=== PATIENT | female | born 1985 | race American Indian/Alaskan Native ===

== ENCOUNTER 2017-09-18 06:18 | Day surgery (SDC) | payer MEDICAID, OTHER ==
[2017-09-18] MEDS ORDERED: WATER FOR IRRIG STERILE IR ONE (07:27)
--- NOTE | 2017-09-18 07:35 | Discharge Summary ---
Providers - Providers Date of discharge: 09/18/17 Attending physician: BRAYAN OLEARY Primary care physician: FELIPA RUIZ Hospitalization Condition: Good Procedures: egd Disposition: - TO HOME OR SELFCARE Core Measure Documentation - Palliative Care Palliative Care/ Comfort Measures: Not Applicable - Core Measures Any of the following diagnoses?: none Exam - Physical Exam Narrative exam: unchanged from pre-op Plan Activity: no restrictions Weight Bearing Status: Full Weight Bearing Diet: regular Follow up with: FELIPA RUIZ MD [Primary Care Provider] - 7 Days
--- NOTE | 2017-09-18 07:45 | Operative Report ---
Operative Report Operative Report: OPERATIVE REPORT - EGD DATE 09/18/17 SURGERY: Upper endoscopy. SURGEON: Yong Hoang M.D. CLEAN ROOM OPERATOR: Genet Núñez MD PRE OP DX: dyspepsia POST OP DX: hiatal hernia TYPE OF ANESTHESIA: MAC. ESTIMATED BLOOD LOSS: None. COMPLICATIONS: None. SPECIMENS REMOVED: None. FINDINGS: 1. Small hiatal hernia. 2. Otherwise, normal esophagus, stomach and first portion of duodenum. INDICATIONS:INDICATION FOR PROCEDURE: Patient is a 32-year-old female with a long history of morbid obesity. She is planned to have a weight loss procedure and is here for preoperative planning EGD. PROCEDURE DETAILS: After consent was reviewed, patient was taken back to the operating room where patient was placed in the left lateral decubitus position and a bite block was placed in the mouth. After a time-out was called, MAC anesthesia was initiated. I then passed the endoscope into her oropharynx, into her esophagus, visualized the entire esophagus, which was all within normal limits. I then visualized the stomach and the first portion of the duodenum and there were no abnormalities I could clearly visualize. I then retroflexed the scope in the stomach and visualized the hiatus and I could see a small hiatal hernia. I then desufflated the stomach and removed the endoscope. Patient tolerated procedure well and was transferred to recovery room in good and stable condition.
[2017-09-18] MEDS ORDERED: NACL 0.9% 1000 ML 1,000 ML IV SCH (08:00)
[2017-09-18] MEDS ORDERED: DIPRIVAN 10 MG/ML IV ONE (08:28)
--- NOTE | 2017-09-18 08:33 | Anesthesia Day of Surgery ---
Anesthesia Day of Surgery - Day of Surgery Patient Examined: Yes Patient H&P Reviewed: Yes Patient is NPO: Yes
--- NOTE | 2017-09-18 08:33 | Anesthesia Consultation ---
Anesthesia Consult and Med Hx Date of service: 09/18/17 - Airway Anesthetic Teeth Evaluation: Poor ROM Head & Neck: Adequate Mental/Hyoid Distance: Adequate Mallampati Class: Class II Intubation Access Assessment: Probably Good - Pulmonary Exam CTA: Yes - Cardiac Exam Cardiac Exam: RRR - Pre-Operative Health Status ASA Pre-Surgery Classification: ASA3 Proposed Anesthetic Plan: General - Hematic Hx Anemia: Yes - Additional Comments Anesthesia Medical History Comments: NAC previously.
[2017-09-18 10:18] VITALS: BP 132/79
== END 2017-09-18 06:19 | disposition home or self-care (01) ==
LOC: GIO 06:18
PROVIDERS: ATTEND Surgery
DX: K30 Functional dyspepsia (principal); K44.9 Diaphragmatic hernia without obstruction or gangrene; F41.9 Anxiety disorder, unspecified; F32.9 Major depressive disorder, single episode, unspecified; D50.9 Iron deficiency anemia, unspecified; E61.8 Deficiency of other specified nutrient elements; E66.01 Morbid (severe) obesity due to excess calories; Z68.43 Body mass index [BMI] 50.0-59.9, adult; Z98.890 Other specified postprocedural states; Z80.0 Family history of malignant neoplasm of digestive organs; Z83.3 Family history of diabetes mellitus; Z80.3 Family history of malignant neoplasm of breast; Z82.49 Family history of ischemic heart disease and other diseases of the circulatory system; Z88.0 Allergy status to penicillin; Z91.048 Other nonmedicinal substance allergy status
CPT/HCPCS: 43235; 81025 ×2; J2704; J7030

== ENCOUNTER 2017-10-09 09:00 | Inpatient (IN) | payer MEDICAID, OTHER ==
--- NOTE | 2017-10-06 10:56 | Anesthesia Consultation ---
Anesthesia Consult and Med Hx Date of service: 10/06/17 - Airway Anesthetic Teeth Evaluation: Good, Chipped (top front) ROM Head & Neck: Adequate Mental/Hyoid Distance: Adequate Mallampati Class: Class II Intubation Access Assessment: Probably Good - Pulmonary Exam CTA: Yes - Cardiac Exam Cardiac Exam: RRR - Pre-Operative Health Status ASA Pre-Surgery Classification: ASA3 Proposed Anesthetic Plan: General - Pulmonary Hx Smoking: No Hx Sleep Apnea: Yes (mild, no CPAP) - Central Nervous System Hx Back Pain: Yes (s/p back surgery) Hx Psychiatric Problems: No - Gastrointestinal Hx Gastroesophageal Reflux Disease: Yes - Endocrine Hx Non-Insulin Dependent Diabetes: Yes (not on meds) - Hematic Hx Anemia: Yes - Other Systems Hx Alcohol Use: No Hx Substance Use: No Hx Cancer: No Hx Obesity: Yes
[2017-10-06 11:30] LABS: Bacteria,Urine 1+ /HPF (Negative); Bilirubin,Urine NEG (Negative); Blood,Urine NEG (Negative); Ketones,Urine NEG (Negative); Leukocyte Esterase,Urine TR (Negative); Nitrite,Urine NEG (Negative); Protein,Urine <15 mg/dL mg/dL (Negative); Urobilinogen,Urine < 2.0 mg/dL (<2.0)
[~2017-10-09 09:00] MED LIST: NACL 0.9% 1000 ML 1,000 ML IV SCH; PEPCID IV NR; TRANSDERM-SCOP TD NR; ZOFRAN IV NR
[2017-10-09] MEDS ORDERED: REGLAN IV PRN (10:14)
[2017-10-09] MEDS ORDERED: ZOFRAN IV PRN (10:14)
[2017-10-09] MEDS ORDERED: DILAUDID IV PRN (10:14)
[2017-10-09] MEDS ORDERED: MORPHINE IV PRN (10:14)
[2017-10-09] MEDS ORDERED: APRESOLINE IV PRN (10:14)
[2017-10-09] MEDS ORDERED: NORCO PO PRN (10:14)
[2017-10-09] MEDS ORDERED: LACTATED RINGERS 1,000 ML IV SCH (11:00)
[2017-10-09] MEDS ORDERED: LEVAQUIN 500MG/100ML 500 MG/100 ML BAG IV NR (11:00)
[2017-10-09] MEDS ORDERED: LEVAQUIN 500MG/100ML 500 MG/100 ML BAG IV ONE (11:00)
[2017-10-09] MEDS ORDERED: FLAGYL 500 MG/100 ML 500 MG/100 ML BAG IV NR ×2 (11:00)
[2017-10-09] MEDS ORDERED: TORADOL IV SCH (11:00)
[2017-10-09] MEDS ORDERED: LOVENOX SUB-Q NR (11:00)
[2017-10-09] MEDS ORDERED: SUBLIMAZE ONE (11:30)
[2017-10-09] MEDS ORDERED: DIPRIVAN 10 MG/ML IV ONE (11:30)
[2017-10-09] MEDS ORDERED: XYLOCAINE 1% 20 mL INFILTRATI ONE (12:03)
[2017-10-09] MEDS ORDERED: ADRENALIN IV ONE (12:03)
[2017-10-09] MEDS ORDERED: NACL 0.9% IR ONE (12:03)
[2017-10-09] MEDS ORDERED: MARCAINE 0.5% INFILTRATI ONE (12:03)
[2017-10-09] MEDS ORDERED: XYLOCAINE 1% 20 mL ONE (12:18)
[2017-10-09] MEDS ORDERED: MARCAINE 0.5% 30 ML INFILTRATI ONE (12:18)
[2017-10-09] MEDS ORDERED: ADRENALIN ONE (12:19)
[2017-10-09] MEDS ORDERED: NACL 0.9% 250ML 250 ML ONE (12:43)
[2017-10-09] MEDS ORDERED: XYLOCAINE MPF 2% ONE (12:58)
[2017-10-09] MEDS ORDERED: ZOFRAN ONE (12:58)
[2017-10-09] MEDS ORDERED: QUELICIN ONE (12:58)
[2017-10-09] MEDS ORDERED: ZEMURON IV ONE (12:58)
[2017-10-09] MEDS ORDERED: DECADRON ONE ×2 (12:59)
[2017-10-09] MEDS ORDERED: NEOSTIGMINE ONE (12:59)
[2017-10-09] MEDS ORDERED: ROBINUL ONE ×2 (12:59)
[2017-10-09] MEDS ORDERED: DILAUDID ONE (13:05)
[2017-10-09] MEDS ORDERED: BREVIBLOC IV ONE (13:41)
--- NOTE | 2017-10-09 14:23 | Operative Report ---
Operative Report Operative Report: Operative Report/ DATE OF PROCEDURE: 10/09/17 PREOPERATIVE DIAGNOSES: Morbid obesity, hiatal hernia POSTOPERATIVE DIAGNOSES: 1.same as pre-op SURGEON: Yong Hoang M.D. DIRECTOR ACCOUNT MANAGEMENT: Genet Núñez MD PROCEDURE: 1. laparoscopic sleeve gastrectomy ANESTHESIA: General. ESTIMATED BLOOD LOSS: <5 mL. COMPLICATIONS: None. SPECIMEN: Partial gastrectomy. FINDINGS: adhesions from previous open cholecystectomy INDICATION FOR PROCEDURE: Patient is a 32-year-old female with a long history of morbid obesity. She has tried multiple efforts at weight loss without residential success. She is here today for sleeve gastrectomy. PROCEDURE IN DETAIL: After consent was reviewed, patient was taken back to the operating room, where patient was placed supine on the bed with both arms out. The patient's legs were doubly strapped to the bed. Patient had a foot board in place. Patient had a body warmer placed by anesthesia. Patient was then prepped and draped in normal sterile surgical fashion. After a time-out was called, I made a stab incision in the left subcostal area and placed a Veress needle through this incision and insufflated the abdomen to 18 mmHg pressure. I then counted down a handsbreadth below the xiphoid process in the midline and slightly left lateral injected local anesthetic and made about 0.5 cm transverse incision. I then used a 5-mm Optiview trocar to enter into the abdomen. I then placed a 45-degree scope through this port and inspected the abdomen. There was no injury on entry of the abdomen. I then placed two 5-mm ports in the right upper quadrant, left upper quadrant and 1 subxiphoid below the costovertebral angle. I then placed a 15-mm port about a handsbreadth rleft lateral and inferior to my anterior RUQ port. I then placed left upper quadrant port along the anterior axillary line in a similar fashion. I then placed the liver retractor through the subxiphoid port and placed the patient in full reverse Trendelenburg. There was no significant hiatal hernia requiring repair at this time. I then identified the pylorus and then counted off 6cm from the pylorus. I then used a LigaSure cutting device to enter into the lesser sac. At that point and then I took down the short gastrics all the way up to the left kianna. Then I had anesthesia pass down a 36-[place] bougie along the lesser curvature of the stomach. I made sure everything else was out of the abdomen except the bougie. I then created my gastric sleeve using a 60-mm laparoscopic stapler. Using green, gold, followed by blue loads . The sleeve looked good without any twisting or torsion. I then had anesthesia to remove the bougie. Hemostasis was obtained along the staple line. I then used Tiseel along the entirety of the staple line and some on the liver. I then removed liver grasper and took it off the field. I then removed the stomach through the 15-mm port. I then closed that fascia with a #1 PDS in a [id number] fashion using a Murali-Solis. I then desufflated the abdomen and then removed all port sites. I then closed the incisions with 4-0 Monocryl in subcuticular fashion. I then dressed the wounds with Dermabond. Patient tolerated the procedure well and was transferred to recovery room in good and stable condition.
[2017-10-09] MEDS: MYLICON PO PRN ×2 (15:25→20:37)
[2017-10-09] MEDS: TORADOL IV SCH ×2 (15:28→20:26)
[2017-10-09] MEDS: FLAGYL 500 MG/100 ML 500 MG/100 ML BAG IV SCH (20:28)
[2017-10-10] MEDS: TORADOL IV SCH ×2 (02:41→09:47)
[2017-10-10 02:44] LABS: Alanine Aminotransferase 16 units/L (7-56); Albumin 3.4 g/dL (3.9-5); Alkaline Phosphatase 67 units/L (35-129); BUN/Creatinine Ratio 10; Blood Urea Nitrogen 6 mg/dL (7-17); Calcium 8.5 mg/dL (8.4-10.2); Carbon Dioxide 23 mmol/L (22-30); Glucose 113 mg/dL (65-100); Total Protein 6.9 g/dL (6.3-8.2)
[2017-10-10 02:49] LABS: Basophils % (Auto) 0.4 % (0.0-1.8); Hematocrit 34.2 % (30.3-42.9); Mean Corpuscular HGB Conc 32 % (30-34); Mean Corpuscular Volume 74 fl (79-97); Platelet Count 270 K/mm3 (140-440); Red Blood Count 4.61 M/mm3 (3.65-5.03); Red Cell Distribution Width 16.7 % (13.2-15.2); White Blood Count 6.6 K/mm3 (4.5-11.0)
[2017-10-10 03:10] LABS: Anion Gap 16 mmol/L; Chloride 102.7 mmol/L (98-107); Potassium 4.7 mmol/L (3.6-5.0); Sodium 137 mmol/L (137-145)
[2017-10-10 04:06] LABS: Mean Corpuscular Hemoglobin 24 pg (28-32)
[2017-10-10] MEDS: FLAGYL 500 MG/100 ML 500 MG/100 ML BAG IV SCH ×2 (04:38→06:36)
[2017-10-10 05:36] LABS: Bacteria,Urine 1+ /HPF (Negative); Bilirubin,Urine NEG (Negative); Blood,Urine NEG (Negative); Ketones,Urine NEG (Negative); Leukocyte Esterase,Urine TR (Negative); Nitrite,Urine NEG (Negative); Protein,Urine <15 mg/dL mg/dL (Negative); RBC,Urine < 1.0 /HPF (0.0-6.0); Urobilinogen,Urine < 2.0 mg/dL (<2.0)
--- NOTE | 2017-10-10 09:47 | Progress Note ---
Subjective Date of service: 10/10/17 Interval history: No anesthetic related complaints. Objective - Constitutional Vitals: Vital Signs - 12hr 10/09/17 10/10/17 10/10/17 21:48 05:00 07:15 Temperature 98.1 F 98.0 F Pulse Rate 82 66 Respiratory 18 18 Rate Blood Pressure 98/60 Blood Pressure 97/52 [Left] O2 Sat by Pulse 100 96 96 Oximetry 10/10/17 07:45 Temperature Pulse Rate Respiratory Rate Blood Pressure Blood Pressure [Left] O2 Sat by Pulse 99 Oximetry - Labs CBC & Chem 7: 10/10/17 02:10 10/10/17 02:10 Labs: Abnormal lab results 10/10/17 10/10/17 Range/Units 02:10 02:10 MCV 74 L (79-97) fl MCH 24 L (28-32) pg RDW 16.7 H (13.2-15.2) % Lymph % (Auto) 10.8 L (13.4-35.0) % Lymph # 0.7 L (1.2-5.4) K/mm3 Seg Neutrophils % 86.1 H (40.0-70.0) % BUN 6 L (7-17) mg/dL Creatinine 0.6 L (0.7-1.2) mg/dL Glucose 113 H (65-100) mg/dL Albumin 3.4 L (3.9-5) g/dL
[2017-10-10] MEDS ORDERED: LOVENOX SUB-Q SCH (10:00)
[2017-10-10 12:14] VITALS: BP 120/59
--- NOTE | 2017-10-10 12:48 | Progress Note ---
Assessment and Plan 32 y.o. F s/p laparoscopic sleeve gastrectomy POD 1 - Pain well controlled -tolerating liquids. - ambulating well Pt is for dc today. Subjective Patient Reports: Positive: no new complaints Narrative: Patient states that she is feeling good. She denies nausea and vomiting. States that her pain is well controlled. Tolerating liquids. Passing gas. No BM. She has been walking with no difficulties. Denies fever/chills. Objective Vital Signs - 12hr 10/10/17 10/10/17 10/10/17 05:00 07:15 07:45 Temperature 98.1 F 98.0 F Pulse Rate 82 66 Respiratory 18 18 Rate Blood Pressure 98/60 Blood Pressure 97/52 [Left] O2 Sat by Pulse 96 96 99 Oximetry 10/10/17 10/10/17 11:38 12:00 Temperature 98.4 F Pulse Rate 74 Respiratory 18 Rate Blood Pressure 99/55 Blood Pressure 120/59 [Left] O2 Sat by Pulse 96 Oximetry - General physical appearance well developed, no distress - Eyes normal occular movement - Neck trachea midline - Respiratory normal expansion, normal respiratory effort, clear to auscultation - Abdomen soft, bowel sounds normal, other (Non-tender to palpation. incision sites are cdi) Hernia: none - Integumentary no rash - Musculoskeletal normal gait - Psychiatric oriented to time, oriented to person, oriented to place, speech is normal, memory intact - Labs 10/10/17 02:10 10/10/17 02:10 Diabetes panel 10/10/17 Range/Units 02:10 Sodium 137 (137-145) mmol/L Potassium 4.7 (3.6-5.0) mmol/L Chloride 102.7 (98-107) mmol/L Carbon Dioxide 23 (22-30) mmol/L BUN 6 L (7-17) mg/dL Creatinine 0.6 L (0.7-1.2) mg/dL Glucose 113 H (65-100) mg/dL Calcium 8.5 (8.4-10.2) mg/dL AST 18 (5-40) units/L ALT 16 (7-56) units/L Alkaline Phosphatase 67 (35-129) units/L Total Protein 6.9 (6.3-8.2) g/dL Albumin 3.4 L (3.9-5) g/dL Calcium panel 10/10/17 Range/Units 02:10 Calcium 8.5 (8.4-10.2) mg/dL Albumin 3.4 L (3.9-5) g/dL Pituitary panel 10/10/17 Range/Units 02:10 Sodium 137 (137-145) mmol/L Potassium 4.7 (3.6-5.0) mmol/L Chloride 102.7 (98-107) mmol/L Carbon Dioxide 23 (22-30) mmol/L BUN 6 L (7-17) mg/dL Creatinine 0.6 L (0.7-1.2) mg/dL Glucose 113 H (65-100) mg/dL Calcium 8.5 (8.4-10.2) mg/dL Adrenal panel 10/10/17 Range/Units 02:10 Sodium 137 (137-145) mmol/L Potassium 4.7 (3.6-5.0) mmol/L Chloride 102.7 (98-107) mmol/L Carbon Dioxide 23 (22-30) mmol/L BUN 6 L (7-17) mg/dL Creatinine 0.6 L (0.7-1.2) mg/dL Glucose 113 H (65-100) mg/dL Calcium 8.5 (8.4-10.2) mg/dL Total Bilirubin 0.30 (0.1-1.2) mg/dL AST 18 (5-40) units/L ALT 16 (7-56) units/L Alkaline Phosphatase 67 (35-129) units/L Total Protein 6.9 (6.3-8.2) g/dL Albumin 3.4 L (3.9-5) g/dL
--- NOTE | 2017-10-10 13:04 | Discharge Summary ---
Providers - Providers Date of Admission: 10/09/17 09:00 Date of discharge: 10/10/17 Attending physician: BRAYAN OLEARY Primary care physician: FELIPA RUIZ Hospitalization Reason for admission: Laprascopic Gastric Sleeve Condition: Good Procedures: Laprascopic gastric sleeve Hospital course: Patient was admitted for laprascopic gastric sleeve. Surgery was completed with no complications. Patient is tolerating liquids, pain is well controlled and is ambulating well. She will be discharged on POD 1 Disposition: DC-01 TO HOME OR SELFCARE Core Measure Documentation - Palliative Care Palliative Care/ Comfort Measures: Not Applicable - Core Measures Any of the following diagnoses?: none Exam - Constitutional Vitals: Temp Pulse Resp BP Pulse Ox 98.4 F 74 18 120/59 96 10/10/17 11:38 10/10/17 11:38 10/10/17 11:38 10/10/17 12:00 10/10/17 11:38 General appearance: Present: no acute distress, well-nourished - EENT Eyes: Present: EOM intact - Respiratory Respiratory effort: normal - Cardiovascular Rhythm: regular - Extremities Extremities: no ischemia, No edema - Abdominal General gastrointestinal: Present: soft, non-tender, non-distended, normal bowel sounds, other (incision sites cdi) Female genitourinary: Present: deferred - Rectal Rectal Exam: deferred - Integumentary Integumentary: Present: clear, warm, dry - Musculoskeletal Musculoskeletal: strength equal bilaterally - Psychiatric Psychiatric: appropriate mood/affect, intact judgment & insight, memory intact, cooperative Plan Activity: other (No lifting 15lbs for 6 weeks. No crunches/sit-ups for 6 weeks. ) Diet: other (Follow diet plan provided in surgery packet. ) Wound: per your surgeon's advice Additional Instructions: Follow up for wound check. Follow up with: FELIPA RUIZ MD [Primary Care Provider] - 7 Days
== END 2017-10-10 14:21 | disposition home or self-care (01) | DRG 641 ==
LOC: 3A 09:00 → 3B-SURG 17:38
PROVIDERS: ADMIT Surgery; ATTEND Surgery
PROC: 0DB64ZZ Excision of Stomach, Percutaneous Endoscopic Approach (ICD-10-PCS; principal; 2017-10-09)
DX: E66.01 Morbid (severe) obesity due to excess calories (principal); Z68.43 Body mass index [BMI] 50.0-59.9, adult; K44.9 Diaphragmatic hernia without obstruction or gangrene; Z88.0 Allergy status to penicillin
CPT/HCPCS: 36415; 80053; 81001; 81025; 82962; 85025; 88307; 94760; C9250; J0171; J0330; J1100; J1170; J1650; J1885; J1956; J2270; J2405; J2704; J2710; J2765; J3010; J7030; J7050; J7120